=== PATIENT | female | born 1985 | race Caucasian/White ===

== ENCOUNTER → 2023-10-29 12:05 | Outpatient (BNVA) | payer MEDICAID, SELFPAY | PROVIDERS: Visit Provider Nurse Practitioner Women's Health | DX: O09.521 Supervision of elderly multigravida, first trimester (principal); Z3A.00 Weeks of gestation of pregnancy not specified | CPT/HCPCS: 80307; 81000; 82105; 82950; 84439; 84443; 84481; 85025; 86592; 86762; 86803; 86850; 86900; 87086; 87340; 87491; 87591; 87806 ==

== ENCOUNTER → 2023-10-30 08:45 | Outpatient (BNVA) | payer MEDICAID, SELFPAY | PROVIDERS: Visit Provider Nurse Practitioner Women's Health | DX: Z34.92 Encounter for supervision of normal pregnancy, unspecified, second trimester (principal); Z3A.22 22 weeks gestation of pregnancy | CPT/HCPCS: 76805; 76810 ==

== ENCOUNTER → 2023-11-11 14:20 | Outpatient (BNVA) | payer MEDICAID, SELFPAY | PROVIDERS: Visit Provider Obstetrics & Gynecology | DX: Z01.419 Encounter for gynecological examination (general) (routine) without abnormal findings (principal) | CPT/HCPCS: 87624 ==

== ENCOUNTER → 2023-12-02 08:28 | Outpatient (BNVA) | payer MEDICAID, SELFPAY | PROVIDERS: Visit Provider Obstetrics & Gynecology | DX: O09.521 Supervision of elderly multigravida, first trimester (principal); Z3A.00 Weeks of gestation of pregnancy not specified; A53.0 Latent syphilis, unspecified as early or late | CPT/HCPCS: 84315; 86592 ==

== ENCOUNTER → 2023-12-15 07:57 | Outpatient (BNVA) | payer MEDICAID, SELFPAY | PROVIDERS: Visit Provider Obstetrics & Gynecology | DX: O09.521 Supervision of elderly multigravida, first trimester (principal); O30.009 Twin pregnancy, unspecified number of placenta and unspecified number of amniotic sacs, unspecified trimester; Z3A.00 Weeks of gestation of pregnancy not specified | CPT/HCPCS: 82950; 84315; 85025 ==

== ENCOUNTER → 2023-12-23 08:18 | Outpatient (BNVA) | payer MEDICAID, SELFPAY | PROVIDERS: Visit Provider Obstetrics & Gynecology | DX: O09.30 Supervision of pregnancy with insufficient antenatal care, unspecified trimester (principal); R82.71 Bacteriuria | CPT/HCPCS: 82951; 82952; 84315; 87086 ==

== ENCOUNTER → 2023-12-29 08:29 | Outpatient (BNVA) | payer MEDICAID, SELFPAY | PROVIDERS: Visit Provider Obstetrics & Gynecology | DX: O30.003 Twin pregnancy, unspecified number of placenta and unspecified number of amniotic sacs, third trimester (principal); Z3A.31 31 weeks gestation of pregnancy | CPT/HCPCS: 76816 ==

== ENCOUNTER → 2024-01-20 08:35 | Outpatient (BNVA) | payer MEDICAID, SELFPAY | PROVIDERS: Visit Provider Nurse Practitioner Women's Health | DX: O09.521 Supervision of elderly multigravida, first trimester (principal); Z3A.00 Weeks of gestation of pregnancy not specified | CPT/HCPCS: 82950; 82951; 84315 ==

== ENCOUNTER → 2024-02-03 09:44 | Outpatient (BNVA) | payer MEDICAID, SELFPAY | PROVIDERS: Visit Provider Obstetrics & Gynecology | DX: Z34.90 Encounter for supervision of normal pregnancy, unspecified, unspecified trimester (principal); Z3A.00 Weeks of gestation of pregnancy not specified | CPT/HCPCS: 84315; 87081 ==

== ENCOUNTER 2024-02-17 14:26 | Inpatient (IN) | payer OTHER, MEDICAID, SELFPAY ==
[2024-02-17] VITALS (42 sets, daily range): BP systolic 113–160; BP diastolic 57–89; PULSE 63–85; TEMP 35.8; O2SAT 99–100; BMI 38.0
[2024-02-17 14:50] LABS: Basophils % 0.4 %; Eosinophils # 0.1 10^3/uL (0.0-0.8); Eosinophils % 1.4 %; Hematocrit 31.9 % (36-47); Lymphocytes # 1.9 10^3/uL (0.8-4.8); Lymphocytes % 23.7 %; Mean Corpuscular Hemoglobin 27.5 pg (27-33); Mean Corpuscular Volume 88.6 fl (85-98); Mean Platelet Volume 11.1 fL (7.4-10.4); Monocytes # 0.3 10^3/uL (0.2-0.9); Monocytes % 3.3 %; Neutrophils # 5.58 10^3/uL (1.8-7.7); Neutrophils % 70.8 %; Nucleated Red Blood Cells % 0 %; Platelet Count 273 10^3/cmm (157-399); Red Cell Distribution Width 14.1 % (12.1-15.1); White Blood Count 7.88 10^3/uL (3.29-11.43)
--- NOTE | 2024-02-17 15:15 | P.HP_ITS ---
Providers/Chief Complaint 2 Admitting Physician: Mamadou Traore MD Primary PRODUCTION CONTROL EXPERT: Mamadou Traore MD Chief Complaint: induction HPI PRODUCTION CONTROL EXPERT History of Present Illness Colette Lopez is a 39 year old female with dichorionic / diamnionic twins at 38 w 1 d admitted for induction of labor complicated by mildly elevated 3-h GTT followed with serial accuchecks, FBS and 1-h postprandial; all values WNL also with syphilis, treated during this with three doses of Bicillin no c/o + active movements Present Details : 5 Para: 4 Labs Rubella: Equivocal RPR: Negative GBS: Negative Medications/Allergies Home Medications Medication Instructions Recorded Confirmed Last Taken Type No Known Home Medications 02/03/24 02/17/24 Unknown History Allergies Allergy/AdvReac Type Severity Reaction Status Date / Time No Known Allergies Allergy Verified 02/17/24 08:36 PFSH PRODUCTION CONTROL EXPERT 2 PFSH: Family History Denies family history of Colon cancer Ovarian cancer Prostate cancer Diabetes Heart disease Breast cancer Hypertension Uterine cancer Thyroid disease Stroke Social History Smoking and tobacco/nicotine status: current every day tobacco/nicotine user History History History 2 5 Term 4 0 Miscarriages/Ectopic 0 Living Children 4 Care MONTRELL Calculator 2 Estimated Delivery Date Method Current WG Current Estimate 03/01/24 Ultrasound #1 38w 2d Other Estimates 03/13/24 LMP (Certain) 36w 4d # 2 Expected Delivery Route/Plan Hx of vaginal delivery x4 without complications Specific Issues/Plans * ADVANCED MATERNAL AGE * LATE TO CARE: first visit at 20 weeks 4 days gestation * SMOKING AFFECTING * GRANDMULTIPARITY: 4 vaginal deliveries * UTI IN : Urine cuture + for E. Coli on 10/29/23, treated with Augmentin on 10/29/23, repeat culture was contaminated. NEED REPEAT * TWIN : DI/DI twin gestation, Celestone given x 2 doses on 12/15/23 and 12/16/23 * SYPHILIS/POSITIVE RPR TEST: 12/02/23 RPR Titer/FTA 1:32, treated with PCN on 12/21/23, 2nd dose given 12/28/23, 3rd dose was 01/04/24 per patient. She received these at the [facility]. * ELEVATED GLUCOSE TOLERANCE TEST: 12/15/23 1 hr GTT 146 , 3 hr was inaccurate due to patient not fasting. Patient is currently tracking blood sugars at home. Vitals/I&O/Wt Last Vital Signs Temp 96.4 F L 02/17/24 13:49 Pulse 61 02/18/24 06:49 BP 118/69 02/18/24 06:41 Pulse Ox 99 02/18/24 06:49 O2 Del Method Room Air 02/17/24 13:21 02/17/24 02/17/24 02/18/24 14:59 22:59 06:59 Intake Total 1409.967 / 5554.413 2115.450 / 2535.417 Output Total 200 / 200 Balance 1409.967 / 1409.967 925.450 / 2335.417 Weight last 48 hrs Weight 201 lb Weight 201 lb Physical Exam 2 Narrative: Weight 201 lbs General comfortable Lungs: clear Cor: RRR Abd: nontender Bedside sono twins cephalic / cephalic Cervix: 2 cm / 75 / -3 / posterior Ext: 2+ edema External monitor: heart tracing good variability, + accelerations x two Urinary Catheter Management: Edge: Cath Placed During This Visit: yes Reason for Continuing Indwelling Catheter: Required Immobilization for Trauma or Surgery or Anesthesia Urinary Catheter Date of Insertion: 02/18/24 Urinary Catheter Time of Insertion: 00:19 Data 02/17/24 13:10 Other Labs: GBS negative Results Labs OB ([facility] [place]): 2 Obstetrics US 12/29/23 Blood Type A Positive 02/17/24 Antibody Screen Negative 02/17/24 Hct 31.9 % (36-47) L 02/17/24 Hgb 9.90 g/dL (11.27-16.99) L 02/17/24 Rho(D) Type Rh positive 02/17/24 Plt Count 273 10^3/cmm (157-399) 02/17/24 Hep Bs Antigen Non-reactive (Nonreactive) 10/29/23 Hepatitis C Antibody Non-reactive (Nonreactive) 10/29/23 Rubella IgG Antibody 7.7 IU/mL (0.0-10.0) 10/29/23 RPR Reactive (Nonreactive) 10/29/23 T.pallidum Ab (FTA-ABS) Reactive A 12/02/23 HIV 1&2 Ab & HIV 1 Ag Non-reactive (Non-Reactiv) 10/29/23 TSH 1.86 uIU/mL (0.27-4.20) 10/29/23 Free T4 0.89 ng/dL (0.82-1.77) 10/29/23 C.trachomatis RNA (TMA) Not detected (NOT DETECTED) N.gonorrhoeae RNA (TMA) Not detected (NOT DETECTED) T. vaginalis Amp RNA Not detected (NOT DETECTED) 10/29/23 Chlamydia/GC Comment See note 10/29/23 Cystic Fibrosis Screen Negative 10/29/23 Glucose 1 Hr 50 gm 166 mg/dL (85-140) H 01/20/24 Gest Glucose Tolerance mg/dL 12/23/23 Urine Opiates Screen Negative ng/mL (Negative) 02/17/24 Ur Barbiturates Screen Negative ng/mL (Negative) 02/17/24 Ur Phencyclidine Scrn Negative ng/mL (Negative) 02/17/24 Ur Amphetamines Screen Negative ng/mL (Negative) 02/17/24 U Benzodiazepines Scrn Negative ng/mL (Negative) 02/17/24 Urine Cocaine Screen Negative ng/mL (Negative) 02/17/24 U Marijuana (THC) Screen Negative ng/mL (Negative) 02/17/24 Micro Urine Specimen 12/23/23 Pap Smear Interpret See note 11/11/23 A&P Assessment and plan (1) Twin : di/di twins at 38 w 1 d admitted for induction of labor Qualifiers: Multiple gestation type: dichorionic and diamniotic Trimester: third trimester Qualified Code(s): O30.043 - Twin , dichorionic/diamniotic, third trimester (2) Syphilis: treated with 3 doses of Bicillin will check RPR titer (3) Elevated glucose tolerance test: accuchecks all WNL, treated with diet (4) Encounter for tubal ligation counseling: patient wants permanent sterilization tubal consent signed earlier this Attestations 2 Medical Necessity Statement*: patient with dichorionic / diamnionic twins at 38 w 1 d, admitted for induction of labor Coding Level of Care Code Acute Code for Chg Fwd Diagnoses Dichorionic diamniotic twin in third trimester O30.043 Multiple gestation type: dichorionic and diamniotic Trimester: third trimester Syphilis A53.9 Elevated glucose tolerance test R73.09 Encounter for tubal ligation counseling Z30.8 Time Spent (min) 60
[2024-02-17 15:26] LABS: Amphetamines Screen Urine Negative (Negative); Barbiturates Screen Urine Negative (Negative); Benzodiazepines Screen Urine Negative (Negative); Cocaine Screen Urine Negative (Negative); Opiate Screen Urine Negative (Negative); PCP Screen Urine Negative (Negative); THC Screen Urine Negative (Negative)
[2024-02-17] MEDS: dextrose 5%-lactated ringers 1,000 ML 125 ML IV (15:36)
[2024-02-17] MEDS: oxytocin 30 UNIT/500 ML BAG IV (15:37)
[2024-02-17] MEDS: lactated ringers 1,000 ML 999 ML IV ×2 (21:55→23:11)
[2024-02-17] MEDS: ROPivacaine syringe 100 MG/50 ML SYRINGE 10 MG EPIDURAL (23:40)
--- NOTE | 2024-02-17 23:46 | P.ANESASSM_ITS ---
Pre-Anesthetic Assessment Height/Weight: Height 1.55 m Weight 91.172 kg Temp Pulse BP Pulse Ox O2 Del Method 96.4 F L 71 122/62 100 Room Air 02/17/24 13:49 02/17/24 23:42 02/17/24 23:42 02/17/24 23:36 02/17/24 13:21 Preop Diagnosis: IUP Labor Epidural Familial anesthetic complications: none Was Beta [place] taken within 24 hours: N/A Was Clonidine taken within 24 hours: N/A Last intake: 1300 food. clears currently Social Tobacco Exam alert, oriented x 3, clear to auscultation bilaterally and regular rate & rhythm Syphilis reported 3 separate doses of abx given repeat titer pending. No signs of infection currently. RN reported concerns for Homeless demographic in patient- could not report last meal, refuses to give a home address etc. Airway Submandibular: within normal limits Cervical ROM: within normal limits Mallampati: Class II Dentition: full Pulmonary None reported CV/HEM None reported None reported Hepatic None reported GI None reported Metabolic None reported Musc/skel None reported Medications/Allergies Home Medications Medication Instructions Recorded Confirmed Last Taken Type No Known Home Medications 02/03/24 02/17/24 Unknown History Allergies Allergy/AdvReac Type Severity Reaction Status Date / Time No Known Allergies Allergy Verified 02/17/24 08:36 Current Medications Generic Name Dose Route Start Last Admin Trade Name Freq PRN Reason Stop Dose Admin Dextrose/Lactated Ringer's 1,000 mls @ 125 mls/hr 02/17/24 14:30 02/17/24 15:36 Dextrose 5%-Lactated Ringers IV 125 mls/hr .Q8H REMI Administration Oxytocin 30 unit in 500 mls @ 1 mls/hr 02/17/24 14:30 02/17/24 19:30 Pitocin IV 8 milliunit/min .Q24H REMI 8 mls/hr Titration Protocol 1 MILLIUNIT/MIN Lactated Ringer's 1,000 mls @ 999 mls/hr 02/17/24 14:25 02/17/24 23:11 Lactated Ringers IV 999 mls/hr .Q1H1M PRN Administration See label comments PFSH Anesthesia Family History Denies family history of Colon cancer Ovarian cancer Prostate cancer Diabetes Heart disease Breast cancer Hypertension Uterine cancer Thyroid disease Stroke Social History Smoking and tobacco/nicotine status: current every day tobacco/nicotine user Female Reproductive History : 5 Data Anesthesia 02/17/24 13:10 Short CBC 02/17/24 Range/Units 13:10 WBC 7.88 (3.29-11.43) 10^3/uL Hgb 9.90 L (11.27-16.99) g/dL Hct 31.9 L (36-47) % MCV 88.6 (85-98) fl Plt Count 273 (157-399) 10^3/cmm Neut % (Auto) 70.8 % Neut # (Auto) 5.58 (1.8-7.7) 10^3/uL Blood Bank 02/17/24 13:10 Blood Type A Positive Rho(D) Type Rh positive Antibody Screen Negative Cardiac Studies: 2 No Data to Display
--- NOTE | 2024-02-17 23:59 | P.ANESUD_ITS ---
Pre-Anesthetic Update Pre-Anesthetic Assessment: Date of Surgery/Procedure: 02/17/24 Preop Laury gnosis: IUP Labs Last 48hrs: Short CBC 02/17/24 Range/Units 13:10 WBC 7.88 (3.29-11.43) 10^ 3/uL Hgb 9.90 L (11.27-16.99) g/ dL Hct 31.9 L (36-47) % MCV 88.6 (85-98) fl Plt Count 273 (157-399) 10^3/c mm Neut % (Auto) 70.8 % Neut # (Auto) 5.58 (1.8-7.7) 10^3/u L Blood Bank 02/17/24 13:10 Blood Type A Positive Rho(D) Type Rh positive Antibody Screen Negative Vitals: Temperature 96.4 F L 02/17/24 13:49 Pulse Rate 69 02/17/24 23:54 Pulse Rhythm Regular 02/17/24 13:21 Respiratory Effort Spontaneous, Non- Labored 02/17/24 13:21 Respiratory Depth Normal 02/17/24 13:21 Respiratory Patter n Normal 02/17/24 13:21 Blood Pressure 122/63 02/17/24 23:54 Pulse Oximetry 100 02/17/24 23:36 Oxygen Delivery Me thod Room Air 02/17/24 13:21 Cardiac Studies: No Data to Display Anesthesia Procedures Epidural: Time Out Performed: Yes Consents Signed: Procedure Consent Consent: requested by attending/covering physician, from patient, risks and benefits reviewed (specifically discussed her syphilis infection.) and patient agrees to proceed Lumbar Level: L4-L5 Epidural position: sitting Epidural procedure: sterile prep of area, 1% lidocaine to numb the area, negative for paresthesia passed, test dose given, 1.5% xylocaine 1:200k epi, no systemic response, sterile dressing applied, L.U.D. no apparent complications and 0.2% Ropiavacaine @ mls/hr (10) Additional Comments: CAROL at 9cm on 3rd attempt. Catheter threaded to 14cm. Test dose given no systemic response, 100 mcg Fentanyl given via epidural and infusion started.
[2024-02-18] VITALS (167 sets, daily range): BP systolic 96–156; BP diastolic 52–86; PULSE 57–95; RESP 17–18; TEMP 36.1–36.7; O2SAT 98–100
[2024-02-18] MEDS: dextrose 5%-lactated ringers 1,000 ML 125 ML IV (00:19)
[2024-02-18] MEDS: ROPivacaine syringe 100 MG/50 ML SYRINGE 10 MG EPIDURAL ×3 (04:23→13:46)
[2024-02-18] MEDS: dextrose 5%-lactated ringers 1,000 ML 110 ML IV (11:25)
[2024-02-18 14:08] LABS: RPR w(Moniotor) w/REFL Titer REACTIVE (NON-REACTIVE)
--- NOTE | 2024-02-18 14:25 | P.PCNOB_ITS ---
Delivery Note: Date of delivery: February 18, 2024 Pre-delivery diagnoses: dichorionic / diamnionic twins 38 w 2 d induction of labor Post-delivery diagnoses: dichorionic / diamnionic twins 38 w 2 d induction of labor vaginal delivery of viable twins Procedure: induction of labor vaginal delivery of viable twins Op report anesthesia: Epidural Delivering Physician: Mamadou Traore MD Estimated blood loss (mL): 300 Findings: , twin A, vigorous male Cord gases and blood obtained , twin B, slightly depressed female Cord gases and blood obtained Normal placenta and two cords, sent to pathology No episiotomy / lacerations EBL: 300 cc No complications Pre-Delivery Course: normal labor course pitocin induction of labor both heart tracing reassuring throughout Delivery: vaginal delivery of viable twins Post-Delivery Status: good History History History 2 5 Term 4 0 Miscarriages/Ectopic 0 Living Children 4 A&P Assessment and plan (1) Vaginal delivery: Coding Level of Care Code Acute Code for Chg Fwd Diagnoses Vaginal delivery O80 Time Spent (min) 60
--- NOTE | 2024-02-18 16:59 | PC.NURSE ---
Resistance met when removing epidural catheter. Pt moved around, sat up straight, and put in the same position as insertion. Epidural catheter removed easily after repositioning.
[2024-02-18] MEDS: docusate sodium 100 mg Capsule PO (17:17)
[2024-02-18] MEDS: ibuprofen 800 mg tablet PO (17:17)
[2024-02-18] MEDS: benzocaine-menthol 78 gm Canister 1 SPRAY TOPICAL (17:17)
[2024-02-18 20:54] LABS: RPR Titer 1:32
[2024-02-19] VITALS: BP 152/68; PULSE 70; RESP 18; TEMP 36.5
[2024-02-19 05:20] VITALS: BP 154/83; TEMP 36.6
[2024-02-19 06:20] LABS: Hematocrit 32.6 % (36-47); Mean Corpuscular HGB Conc 28.8 g/dL (30-55); Mean Corpuscular Hemoglobin 28.1 pg (27-33); Mean Corpuscular Volume 97.6 fl (85-98); Mean Platelet Volume 11.2 fL (7.4-10.4); Platelet Count 194 10^3/cmm (157-399); Red Blood Count 3.34 10^6/uL (3.85-5.65); Red Cell Distribution Width 14.1 % (12.1-15.1); White Blood Count 9.21 10^3/uL (3.29-11.43)
--- NOTE | 2024-02-19 07:39 | PC.NURSE ---
Pt did not have folley catheter at the beginning of this nurse's shift.
--- NOTE | 2024-02-19 08:00 | ANE.PACU2 ---
Inpatient post-anesthesia follow up: Airway intact: Yes Vital signs: Temperature 98.0 F Pulse Rate 66 Respiratory Rate 18 Blood Pressure 128/74 Pulse Oximetry 99 Oxygen Delivery Me thod Room Air Oxygen Flow Rate Fraction of Inspir ed Oxygen Hydration adequate: Yes Nausea and vomiting: No Pain level: 1 Mental status: Baseline Epidural Start/End: Epidural Start Date: 02/17/24 Epidural Start Time: 23:05 Epidural End Date: 02/18/24 Epidural End Time: 16:58
[2024-02-19] MEDS: docusate sodium 100 mg Capsule PO (08:56)
[2024-02-19] MEDS: ibuprofen 800 mg tablet PO ×3 (08:56→21:28)
[2024-02-19] MEDS: PRENATAL VIT NO.130/IRON/FOLIC 1 EACH TABLET PO (08:56)
[2024-02-19 11:00] VITALS: BP 146/74; PULSE 55; RESP 18; TEMP 36.7; O2SAT 99
--- NOTE | 2024-02-19 15:10 | P.PN_ITS ---
HEAD OF COMMISSION DEPARTMENT Subjective 2 Subjective: Interval history: no c/o no bleeding, pain eating, voiding, ambulating well caring for newborns without any problems Labor: Station: -1 Amniotic Membrane Status: Ruptured Monitor Mode: External Contraction Pattern: Regular Status: Category I Vitals/I&O/Wt Last Vital Signs Temp 98.0 F 02/19/24 21:40 Pulse 66 02/19/24 21:40 Resp 18 02/19/24 21:40 BP 128/74 02/19/24 21:40 Pulse Ox 99 02/19/24 21:40 O2 Del Method Room Air 02/19/24 21:30 Physical Exam 2 Narrative: afebrile, VS normal comfortable, awake, alert Abd: soft, nontender. fundus firm Ext: no edema; nontender Urinary Catheter Management: Edge: Cath Placed During This Visit: yes, but has since been removed by the nurse Reason for Continuing Indwelling Catheter: Other Urinary Catheter Date of Insertion: 02/18/24 Urinary Catheter Time of Insertion: 00:19 Date Urinary Catheter Removed: 02/18/24 Time Urinary Catheter Discontinued: 19:00 Data 02/19/24 06:10 A&P Assessment and plan (1) Vaginal delivery: PPD #1 twins doing well plan to discharge to home today instructions and precautions given call/return if fever, chills, headache, blurry vision, nausea, vomiting, abdominal pain; vaginal bleeding or discharge; shortness of breath, chest pain, leg pains or swelling; inability to void, perineal pain or swelling; feelings of depression or mood changes; thoughts of suicide or harming others; inability to care for baby. f/u in 6 weeks or PRN Attestations 2 Medical Necessity Statement*: patient s/p vaginal delivery of twins, plan to discharge to home today Coding Level of Care Code Acute Code for Chg Fwd Diagnoses Vaginal delivery O80 Time Spent (min) 20
--- NOTE | 2024-02-19 15:20 | P.DS_ITS ---
Discharge Providers CRYPTOLOGICAL TECHNICIAN Date of Admission: 02/17/24 14:26 Date of Discharge: 02/19/24 Attending Provider at Admission: Mamadou Traore MD Attending Provider at Discharge: Mamadou Traore MD Consults: none Primary CRYPTOLOGICAL TECHNICIAN: Mamadou Traore MD Diagnoses at Discharge Discharge Diagnosis (1) Vaginal delivery: Details from hospital stay: 39 y.o. EDC March 01, 2024 at 38 weeks with dichorionic / diamnionic twins h/o x 4 complicated by syphilis, treated with three doses of Bicillin 2.4 M U IM, given one week apart admitted for induction of labor patient was started on pitocin for labor induction patient progressed with normal labor course had vaginal delivery of twins without any complications there were no episiotomy or lacerations patient did well and was discharged to home on the first day Status: Acute Reason for Visit Reason for Visit: induction Brief History: 39 y.o. EDC March 01, 2024 at 38 weeks with dichorionic / diamnionic twins h/o x 4 complicated by syphilis, treated with three doses of Bicillin 2.4 M U IM, given one week apart admitted for induction of labor Hospital Course Hospital Course 39 y.o. EDC March 01, 2024 at 38 weeks with dichorionic / diamnionic twins h/o x 4 complicated by syphilis, treated with three doses of Bicillin 2.4 M U IM, given one week apart admitted for induction of labor patient was started on pitocin for labor induction patient progressed with normal labor course had vaginal delivery of twins without any complications there were no episiotomy or lacerations patient did well and was discharged to home on the first day Information Peripartum Data: Infant Delivery Method: Vaginal Laceration description: None Episiotomy description: None complications: none Physical Exam Narrative: afebrile, VS normal comfortable, awake, alert Abd: soft, nontender. fundus firm Ext: no edema; nontender Urinary Catheter Management: Edge: Cath Placed During This Visit: yes, but has since been removed by the nurse Reason for Continuing Indwelling Catheter: Other Urinary Catheter Date of Insertion: 02/18/24 Urinary Catheter Time of Insertion: 00:19 Date Urinary Catheter Removed: 02/18/24 Time Urinary Catheter Discontinued: 19:00 History History History 5 Term 4 0 Miscarriages/Ectopic 0 Living Children 4 Discharge Data Studies Completed and Pending Completed Studies During Hospitalization Category Date Time Status Pathology: Surgical [PTH] Routine Pth 02/18/24 15:14 Completed Laboratory Results WBC 9.21 10^3/uL (3.29-11.43) 02/19/24 06:10 RBC 3.34 10^6/uL (3.85-5.65) L 02/19/24 06:10 Hgb 9.40 g/dL (11.27-16.99) L 02/19/24 06:10 Hct 32.6 % (36-47) L 02/19/24 06:10 MCV 97.6 fl (85-98) 02/19/24 06:10 MCH 28.1 pg (27-33) 02/19/24 06:10 MCHC 28.8 g/dL (30-55) L 02/19/24 06:10 RDW 14.1 % (12.1-15.1) 02/19/24 06:10 Plt Count 194 10^3/cmm (157-399) 02/19/24 06:10 MPV 11.2 fL (7.4-10.4) H 02/19/24 06:10 Neut % (Auto) 70.8 % 02/17/24 13:10 Lymph % (Auto) 23.7 % 02/17/24 13:10 [place] % (Auto) 3.3 % 02/17/24 13:10 Eos % (Auto) 1.4 % 02/17/24 13:10 Baso % (Auto) 0.4 % 02/17/24 13:10 Neut # (Auto) 5.58 10^3/uL (1.8-7.7) 02/17/24 13:10 Lymph # (Auto) 1.9 10^3/uL (0.8-4.8) 02/17/24 13:10 [place] # (Auto) 0.3 10^3/uL (0.2-0.9) 02/17/24 13:10 Eos # (Auto) 0.1 10^3/uL (0.0-0.8) 02/17/24 13:10 Baso # (Auto) 0.0 10^3/uL (0.0-0.1) 02/17/24 13:10 Nucleated RBC % (auto) 0 % 02/17/24 13:10 Nucleated RBCs # 0.0 /100WBC 02/17/24 13:10 Urine Opiates Screen Negative ng/mL (Negative) 02/17/24 14:00 Ur Barbiturates Screen Negative ng/mL (Negative) 02/17/24 14:00 Ur Phencyclidine Scrn Negative ng/mL (Negative) 02/17/24 14:00 Ur Amphetamines Screen Negative ng/mL (Negative) 02/17/24 14:00 U Benzodiazepines Scrn Negative ng/mL (Negative) 02/17/24 14:00 Urine Cocaine Screen Negative ng/mL (Negative) 02/17/24 14:00 U Marijuana (THC) Screen Negative ng/mL (Negative) 02/17/24 14:00 RPR Titer/FTA 1:32 H 02/17/24 13:10 RPR w/Rflx to Titer Reactive (NON-REACTIVE) A 02/17/24 13:10 Blood Type A Positive 02/17/24 13:10 Rho(D) Type Rh positive 02/17/24 13:10 Antibody Screen Negative 02/17/24 13:10 Procedures Performed induction of labor vaginal delivery of twins Vitals Last Vital Signs Temp 98.0 F 02/19/24 21:40 Pulse 66 02/19/24 21:40 Resp 18 02/19/24 21:40 BP 128/74 02/19/24 21:40 Pulse Ox 99 02/19/24 21:40 O2 Del Method Room Air 02/19/24 21:30 Results Labs OB ([facility]): Obstetrics US 12/29/23 Blood Type A Positive 02/17/24 Antibody Screen Negative 02/17/24 Hct 32.6 % (36-47) L 02/19/24 Hgb 9.40 g/dL (11.27-16.99) L 02/19/24 Rho(D) Type Rh positive 02/17/24 Plt Count 194 10^3/cmm (157-399) 02/19/24 Hep Bs Antigen Non-reactive (Nonreactive) 10/29/23 Hepatitis C Antibody Non-reactive (Nonreactive) 10/29/23 Rubella IgG Antibody 7.7 IU/mL (0.0-10.0) 10/29/23 RPR Reactive (Nonreactive) 10/29/23 T.pallidum Ab (FTA-ABS) Reactive A 12/02/23 HIV 1&2 Ab & HIV 1 Ag Non-reactive (Non-Reactiv) 10/29/23 TSH 1.86 uIU/mL (0.27-4.20) 10/29/23 Free T4 0.89 ng/dL (0.82-1.77) 10/29/23 C.trachomatis RNA (TMA) Not detected (NOT DETECTED) N.gonorrhoeae RNA (TMA) Not detected (NOT DETECTED) T. vaginalis Amp RNA Not detected (NOT DETECTED) 10/29/23 Chlamydia/GC Comment See note 10/29/23 Cystic Fibrosis Screen Negative 10/29/23 Glucose 1 Hr 50 gm 166 mg/dL (85-140) H 01/20/24 Gest Glucose Tolerance mg/dL 12/23/23 Urine Opiates Screen Negative ng/mL (Negative) 02/17/24 Ur Barbiturates Screen Negative ng/mL (Negative) 02/17/24 Ur Phencyclidine Scrn Negative ng/mL (Negative) 02/17/24 Ur Amphetamines Screen Negative ng/mL (Negative) 02/17/24 U Benzodiazepines Scrn Negative ng/mL (Negative) 02/17/24 Urine Cocaine Screen Negative ng/mL (Negative) 02/17/24 U Marijuana (THC) Screen Negative ng/mL (Negative) 02/17/24 Micro Urine Specimen 12/23/23 Pap Smear Interpret See note 11/11/23 Discharge Plan Discharge Patient Disposition: Home Condition: Stable Prescriptions: No Action No Known Home Medications Discharge Orders: Discharge Order (Routine); Ordered 02/19/24 Ordered By: Mamadou Traore Discharge Diet: Usual diet Discharge Activity: Increase activity as tolerated Patient Instructions: Depression (DC), Your Baby (DC), Twins (DC), Preeclampsia and Eclampsia After Delivery (GEN), Vaginal Delivery (DC), OB Care at Home, Opioid Safety Activity Restrictions/Additional Instructions: Return to clinic in 2 weeks. I will contact patient with appointment once clinic reopens next week. Discharge Attestations CRYPTOLOGICAL TECHNICIAN Time Spent in Discharge Care*: less than 30 min Coding Level of Care Code Acute Code for Chg Fwd Diagnoses Vaginal delivery O80 Time Spent (min) 20
[2024-02-19 16:39] VITALS: BP 161/93; PULSE 56; RESP 18; TEMP 36.7; O2SAT 97
[2024-02-19 21:30] VITALS: BP 128/74; PULSE 66; RESP 18; TEMP 36.7; O2SAT 99
[2024-02-19 21:40] VITALS: BP 128/74; PULSE 66; RESP 18; TEMP 36.7; O2SAT 99
--- NOTE | 2024-02-19 22:59 | PC.NURSE ---
patient declined mmr vaccine and would prefer to receive it in office.
== END 2024-02-19 21:45 | disposition home or self-care (01) | DRG 807 ==
LOC: OPOB 14:27 → OBGYN 14:27
PROVIDERS: Admitting Provider Obstetrics & Gynecology; Visit Provider Obstetrics & Gynecology
DX: O30.043 Twin pregnancy, dichorionic/diamniotic, third trimester (principal); Z37.2 Twins, both liveborn; Z3A.38 38 weeks gestation of pregnancy; O99.334 Smoking (tobacco) complicating childbirth; F17.200 Nicotine dependence, unspecified, uncomplicated
CPT/HCPCS: 36415; 51702; 59025; 59409; 80306; 84315; 85025; 85027; 86592; 86850; 86900; 88307; 96374; J2590; J2795; J3010; J7120; J7121

== ENCOUNTER 2024-03-31 08:42 | Day surgery (SDC) | payer MEDICAID, SELFPAY ==
--- NOTE | 2024-03-30 23:42 | W.PM.OPSFHP ---
Same Day Surgery H&P Indication for Procedure/HPI DATE OF PROCEDURE: March 31, 2024 CHIEF COMPLAINT/INDICATIONFOR SURGICAL PROCEDURE: desires permanent sterilization PREOP DIAGNOSIS: desires permanent sterilization PLANNED PROCEDURE: Operation Date: 03/31/24 10:30 Proposed Procedures p Laparoscopic bilateral partial salpingectomy(Bilateral) - Mamadou Traore MD 39 y.o. desires permanent sterilization Medications/Allergies* Home Medications Medication Instructions Recorded Confirmed Type No Known Home Medications 02/03/24 03/30/24 History Allergies/Adverse Reactions Allergy/AdvReac Type Severity Reaction Status Date / Time No Known Allergies Allergy Verified 03/30/24 09:26 Pertinent History/Comorbid Conditions* Medical History (Updated 03/21/24 @ 07:20 by Mamadou Traore MD) Twin Vaginal delivery Encounter for tubal ligation counseling Elevated glucose tolerance test Syphilis Family History (Updated 10/29/23 @ 08:08 by Anisha Evangelista LPN) Denies family history of Colon cancer Ovarian cancer Prostate cancer Diabetes Heart disease Breast cancer Hypertension Uterine cancer Thyroid disease Stroke Social History Smoking and tobacco/nicotine status: current every day tobacco/nicotine user Pertinent Exam Findings alert, oriented x 3, clear to auscultation bilaterally and regular rate & rhythm Recommendations Surgery/Procedure today Coding Level of Care Code Acute Code for Chg Fwd Time Spent (min) 20
[2024-03-31] VITALS (10 sets, daily range): BP systolic 106–137; BP diastolic 61–88; PULSE 64–90; RESP 14–20; TEMP 36.1–36.3; O2SAT 96–100; BMI 32.1
[2024-03-31] MEDS: sodium chloride 0.9% 1,000 ML 30 ML IV (09:13)
[2024-03-31 09:16] LABS: OR HCG Qualitative Urine Negative (Negative)
--- NOTE | 2024-03-31 09:43 | W.PM.OPSUD ---
Surgery/Procedure H&P Update DATE OF PROCEDURE: March 31, 2024 DATE H&P PERFORMED: 03/30/24 H&P UPDATE INFORMATION: I have reviewed H&P completed within last 30 days, I have examined patient prior to procedure and No changes to prior documentation PREOP DIAGNOSIS: desires permanent sterilization PLANNED PROCEDURE: Operation Date: 03/31/24 10:30 Proposed Procedures p Laparoscopic bilateral partial salpingectomy(Bilateral) - Mamadou Traore MD
--- NOTE | 2024-03-31 09:43 | ANES.PREANE2 ---
Pre-Anesthetic Assessment Height/Weight: Height 1.55 m Weight 77.111 kg Temp Pulse Resp BP Pulse Ox O2 Del Method 97 F L 67 18 117/75 100 Room Air 03/31/24 09:01 03/31/24 09:01 03/31/24 09:01 03/31/24 09:01 03/31/24 09:01 03/31/24 09:03 Preop Diagnosis: desires permanent sterilization Operation Date: 03/31/24 10:30 Proposed Procedures p Laparoscopic bilateral partial salpingectomy(Bilateral) - Mamadou Traore MD Familial anesthetic complications: None Was Beta [place] taken within 24 hours: N/A Was Clonidine taken within 24 hours: N/A Last intake: Intake Last Liquid Date 03/30/24 Last Liquid Time 22:30 Last Solid Date 03/30/24 Last Solid Time 19:00 Social No alcohol and No tobacco Exam alert, oriented x 3, clear to auscultation bilaterally and regular rate & rhythm Airway Mallampati: Class II Dentition: loose (Front L is loose) and full Anesthetic Plan ASA status: 2 Anesthesia: General Risk of > 500 ml blood loss (7ml/kg in children): No Medications/Allergies Home Medications Medication Instructions Recorded Confirmed Last Taken Type No Known Home Medications 02/03/24 03/30/24 Unknown History Allergies Allergy/AdvReac Type Severity Reaction Status Date / Time No Known Allergies Allergy Verified 03/31/24 08:59 Current Medications Generic Name Dose Route Start Last Admin Trade Name Freq PRN Reason Stop Dose Admin Sodium Chloride 1,000 mls @ 30 mls/hr 03/31/24 09:00 03/31/24 09:13 Sodium Chloride 0.9% IV 04/01/24 08:59 30 mls/hr .Q24H REMI Administration PFSH Anesthesia Medical History (Updated 03/21/24 @ 07:20 by Mamadou Traore MD) Twin Vaginal delivery Encounter for tubal ligation counseling Elevated glucose tolerance test Syphilis Family History Denies family history of Colon cancer Ovarian cancer Prostate cancer Diabetes Heart disease Breast cancer Hypertension Uterine cancer Thyroid disease Stroke Social History Smoking and tobacco/nicotine status: current every day tobacco/nicotine user Female Reproductive History Date of last menstrual period: 03/30/24 Data Anesthesia Cardiac Studies: No Data to Display
--- NOTE | 2024-03-31 10:30 | ANES.PROC ---
Anesthesia Procedures Procedure/Date: 03/31/24 Endotracheal Intubation Procedure Narrative: A time out was performed. My hands were washed immediately prior to the procedure. I wore a surgical cap, mask with protective eyewear, gown and gloves throughout the procedure. The patient was placed on a property assessment monitor including continuous pulse oximetry. The patient received Midazolam, Fentanyl, Lidocaine, and Propofol for induction and Rocuronium for adequate paralysis. Using a Mac 3 laryngoscope and a size 7cm endotracheal tube with stylet, the patient was intubated on the first attempt. The stylet was removed and cuff balloon was inflated. Appropriate endotracheal tube position was confirmed by direct visualization of vocal cord passage, fogging of the tube, CO2 colormetric indicator and symmetric breath sounds. The tube was secured at 21 cm at the lips. Other Information: Attending Anesthesiologist: Dr. Macias
--- NOTE | 2024-03-31 11:50 | P.OP_ITS ---
Operative Report Date of procedure: March 31, 2024 Pre-op diagnosis: desires permanent sterilization Post-op diagnosis: same Post-op findings: normal uterus, tubes, and ovaries Procedure done: laparoscopic bilateral partial salpingectomy Specimens removed/disposition: bilateral partial fallopian tube segments Surgeon: Mamadou Traore MD Anesthesia: General Estimated blood loss (mL): 5 Complications: none Findings: normal uterus, tubes, and ovaries Condition: stable Disposition: PACU Brief History: 39 y.o. desires permanent sterilization Procedure: Informed consent was obtained. The patient was taken to the OR and placed on the table. General endotracheal anesthesia was induced. The abdomen was prepped and draped in the usual fashion. A 5 mm subumbilical skin incision was made. A 5 mm trocar with sheath was then inserted into the peritoneal cavity under direct visualization with the laparoscope. After confirming intraperitoneal position, pneumoperitoneum was achieved. Two separate 5 mm incisions were made in the right and left mid- quadrants. 5 mm trocars with sheaths were then inserted into the peritoneal cavity under direct visualization with the laparoscope. The right fallopian tube was then identified to its fimbrial end. Starting at the fimbrial end, the mesosalpinx was then coagulated and cut using the Endoseal. A 4-5 cm portion of the right fallopian tube was excised and removed via one of the ports. This was sent to pathology. There was no bleeding seen. Similarly, the left fallopian tube was identified to its fimbrial end. A 4-5 cm portion of the left fallopian tube was excised and removed, sent to pathology. There was no bleeding. All instruments were then removed from the peritoneal cavity after the pneumoperitoneum was allowed to escape. The skin incisions were closed using 3- O chromic in subcuticular fashion. Dermabond was applied. The patient was then placed supine and awakened, taken the the PACU in good condition. Postop condition: stable EBL: 5 cc Complications: none Sponge, needles, and instruments counts correct x two
--- NOTE | 2024-03-31 12:30 | ANE.PACU2 ---
Inpatient post-anesthesia follow up: Airway intact: Yes Vital signs: Temperature 97 F Pulse Rate 67 Respiratory Rate 18 Blood Pressure 112/67 Pulse Oximetry 96 Oxygen Delivery Me thod Room Air Oxygen Flow Rate Fraction of Inspir ed Oxygen Hydration adequate: Yes Nausea and vomiting: No Pain level: 1 Mental status: Baseline
== END 2024-03-31 12:37 | disposition home or self-care (01) ==
PROVIDERS: Anesthesiology; Visit Provider Obstetrics & Gynecology
PROC: (CPT 58661; principal; 2024-03-31 10:20)
DX: Z30.2 Encounter for sterilization (principal); F17.200 Nicotine dependence, unspecified, uncomplicated
CPT/HCPCS: 58661; 81025; 88302; J0131; J1100; J1885; J2250; J2405; J2704; J3010; J3490; J7030